=== PATIENT | female | born 1960 | race Two or more races ===

== ENCOUNTER 2021-12-08 09:50 | Emergency (ER) | payer OTHER ==
[~2021-12-08] VITALS: Ht 165.1 cm; Wt 73.6 kg
[2021-12-08 09:52] VITALS: BP 128/74
[2021-12-08] MEDS ORDERED: LISI-893 PO (10:04)
[2021-12-08] MEDS ORDERED: ATOR10TA84 PO (10:04)
== END 2021-12-08 10:54 | disposition home or self-care (01) ==
LOC: EMS 09:50
DX: F41.9 Anxiety disorder, unspecified (principal); F45.8 Other somatoform disorders; I10 Essential (primary) hypertension; E11.9 Type 2 diabetes mellitus without complications; E78.00 Pure hypercholesterolemia, unspecified; Z79.899 Other long term (current) drug therapy
CPT/HCPCS: 82962; 93005; 99283